=== PATIENT | female | born 1955 | race Caucasian/White ===

== ENCOUNTER 2018-07-30 09:26 | Emergency (ER) | payer OTHER ==
[~2018-07-30] VITALS: Ht 180.3 cm; Wt 84.1 kg
[2018-07-30] MEDS ORDERED: PRAVASTATIN20 MG PO (09:43)
[2018-07-30] MEDS ORDERED: KEPPRA500 M2 PO (09:45)
[2018-07-30] MEDS ORDERED: MYSOLINE50 M2 PO (09:45)
[2018-07-30] MEDS ORDERED: LOSARTAN POT50 MG PO (09:46)
[2018-07-30] MEDS ORDERED: BYSTOLIC5 MG PO (09:46)
[2018-07-30 09:52] VITALS: BP 136/68
[2018-07-30 10:01] LABS: HEMATOCRIT 37.7 % (37.0-47.0); HEMOGLOBIN 12.7 g/dl (12.0-16.0); IMMATURE GRANULOCYTES 0.4 % (0.0-5.0); MEAN CELL VOLUME 89.8 fL CALC (80.0-100.0); MEAN CORPUSCULAR HGB 30.2 pG CALC (26.0-32.0); MEAN CORPUSCULAR HGB CONC 33.7 g/L CALC (32.0-36.0); NEUT# 6.65 thou/uL (2.00-7.15); RED BLOOD COUNT 4.2 mill/uL (4.20-5.60)
[2018-07-30 10:21] LABS: CREATININE 1.6 mg/dL (0.5-1.0)
[2018-07-30 10:28] LABS: POTASSIUM 4.5 mmol/l (3.5-5.1)
[2018-07-30 10:59] LABS: URINE BLOOD DIPSTICK MODERATE (NEGATIVE); URINE COLOR YELLOW; URINE GLUCOSE - DIPSTICK NEGATIVE (NEGATIVE); URINE KETONE NEGATIVE (NEGATIVE); URINE LEUK ESTERASE NEGATIVE (NEGATIVE); URINE NITRITE - DIPSTICK NEGATIVE (Negative); URINE PROTEIN - DIPSTICK 100 mg/dL (NEG-TRACE); URINE SPECIFIC GRAVITY >=1.030; URINE UROBILINOGEN - DIPSTICK 0.2 E.U./dL (0.2)
[2018-07-30 11:06] LABS: URINE BILIRUBIN - DIPSTICK NEGATIVE (NEGATIVE)
[2018-07-30 11:09] LABS: URINE RBC 0-2 RBC/hpf (0-5)
[2018-07-30 11:10] LABS: URINE AMORPH SEDIMENT MODERATE hpf (NONE-FEW); URINE HYALINE CAST FEW lpf (NONE-RARE)
== END 2018-07-30 12:30 | disposition home or self-care (01) | DRG 696 ==
LOC: ED 09:26 → ED-I 10:25 → ED 12:30
PROVIDERS: Family Medicine
DX: R35.0 Frequency of micturition (principal)